=== PATIENT | female | born 2005 | race Caucasian/White ===

== ENCOUNTER 2024-11-11 19:49 | Emergency (ER) | payer OTHER, SELFPAY ==
[2024-11-11 19:50] VITALS: BP 143/99
[2024-11-11 20:06] LABS: % Basophils 0.2 % (0-2); % Eosinophils 0.4 % (0-6); % Immature Granulocytes 0.4 % (0-0.5); % Monocytes 7.3 % (1.7-9.3); % Neutrophils 70.7 % (42.2-75.2); Absolute Monocytes 0.3 10^3/uL (0.1-0.6); Absolute Neutrophils 3.3 10^3/uL (1.4-6.5); Hematocrit 41.1 % (37.0-47.0); Hemoglobin 13.6 g/dL (12.0-16.0); Mean Corp Hgb Conc. 33.1 g/dL (33.0-37.0); Mean Corpuscular Hgb 27.2 pg (27.0-31.0); Mean Corpuscular Volume 82.2 fL (81.0-99.0); Mean Platelet Volume 10.5 fL (7.4-10.4); Nucleated Red Blood Cells % 0 %; Platelet Count 238 10^3/uL (130-400); Red Cell Dist. Width 16.7 % (11.5-14.5); White Blood Cell Count 4.7 10^3/uL (4.8-10.8)
[2024-11-11 20:15] LABS: HCG, Serum Qualitative Screen Negative
[2024-11-11 20:20] LABS: ALT (SGPT) 58 U/L (0-35); AST (SGOT) 60 U/L (14-36); Albumin 4.5 g/dl (3.5-5.0); Alkaline Phosphatase 53 U/L (38-126); Blood Urea Nitrogen 6 mg/dl (7-17); Calcium 9.4 mg/dl (8.4-10.2); Carbon Dioxide 23 mmol/L (22-30); Chloride 107 mmol/L (98-107); Glucose 116 mg/dl (70-99); Potassium 5.4 mmol/L (3.5-5.1); Sodium 138 mmol/L (135-145); Total Bilirubin 0.5 mg/dl (0.2-1.3); Total Protein 7.7 g/dl (6.3-8.2); eGFR > 60.00
[2024-11-11 20:31] LABS: COVID-19 Antigen Negative (Negative)
[2024-11-11 22:25] VITALS: BP 135/89
[2024-11-11] MEDS: MOTRIN 600 MG PO (22:29)
--- NOTE | 2024-11-11 23:16 | ED.GENMED ---
History of Present Illness
<Whitley Diaz PA-C - Last Filed: 11/12/24 05:44>
General
Chief Complaint: Headache
Source: patient
Exam Limitations: none
Time Seen by Provider: 11/11/24 23:16
Nursing documentation reviewed up to this point in time: agreed with
History of Present Illness
History of Present Illness:
19-year-old female with no past medical history presents emergency department today with concerns of frontal headache and neck pain. Patient reports that this has been going on for the past 4 days. Patient reports that initially, Tylenol and Motrin
helped her symptoms but then it started to get to the point where these medications no longer helped. She started notes that 2 days ago, she felt warm and took her temperature and noticed that she had a fever. She saw her primary care provider
today and was told to go to emergency department due to concern for meningitis. Patient reports that she is up-to-date on her vaccinations. She denies any rash. She denies any abdominal pain. She denies any visual changes or visual loss. She
denies any dizziness or lightheadedness. She has never had symptoms like this in the past. She denies any sore throat, cough, upper respiratory symptoms. Denies any burning with urination. Patient also notes generalized bodyaches with this as
well as back pain.
Review of Systems
<Whitley Diaz PA-C - Last Filed: 11/12/24 05:44>
Review of Systems
All Other Systems: ROS reviewed and negative except as documented in HPI and ROS
Phy Exam
<Whitley Diaz PA-C - Last Filed: 11/12/24 05:44>
Physical Exam
Physical Exam:
General: Patient is well appearing and in no acute distress; non-toxic
Skin: Warm and dry, no rashes or lesions
Head: Normocephalic, atraumatic
Eyes: Sclera non-icteric. EOMs intact.
Cardiac: Regular rate and rhythm, no murmurs
Pulm: Normal respiratory effort, no wheezes, rales, or rhonchi
Abdomen: No abdominal tenderness to palpation
Musculoskeletal: No midline cervical spinal tenderness, no midline thoracic tenderness
Neuro: CN II-XII intact, no focal neurologic deficits. No meningismus, mild paracervical tenderness to palpation
Psychiatric: Appropriate mood and affect.
Sepsis
<Whitley Diaz PA-C - Last Filed: 11/12/24 05:44>
Sepsis Screening
Sepsis Assessment: Sepsis Ruled Out
Sepsis Screen
Sepsis Screen: Sepsis Ruled Out
Date: 11/12/24
Time: 05:44
Course
<MAL Jiménez Last Filed: 11/12/24 05:44>
Orders/Labs/Results
Orders:
Orders
11/11/24 19:53
Test Result ONCE
11/11/24 19:59
COVID-19 Antigen Urgent
Source: Nasal Swab
Complete Blood Count/With Diff Urgent
Comprehensive Metabolic Panel Urgent
HCG, Serum Qualitative Screen Urgent
Monotest Urgent
Comment: ADD ON
Influenza A+B Rapid Molecular Urgent
SACHIN Source: Nasal Swab
Specimen Description:
11/11/24 22:28
Ibuprofen [Motrin] 600 mg .ROUTE .STK-MED ONE
11/11/24 22:29
Ibuprofen [Motrin] 600 mg PO NOW STA
11/11/24 23:12
Acetaminophen [Tylenol] 650 mg PO NOW STA
11/11/24 23:18
Urinalysis Reflex To Culture Urgent
Date Specimen was Collected: 11/12/24
Time Specimen was Collected: 00:05
11/11/24 23:29
CT Head W/o Iv Contrast Urgent
Comment:
Reason For Exam: headache, neck pain, fever
11/11/24 23:33
0.9% Sodium Chloride 1000 ml [Nss] 1,000 ml IV BOLUS
11/11/24 23:48
Add On- LAB Urgent
Tests Added?: mono
11/12/24 00:11
Urine Microscopic Reflex Cult Urgent
11/12/24 00:38
Diphenhydramine [Benadryl] 25 mg IV NOW STA
Metoclopramide [Reglan] 10 mg IV NOW STA
CR Chest - 2 Views Urgent
Comment:
Reason For Exam: fever
11/12/24 01:33
Midazolam HCl [Versed] 2 mg IV NOW STA
11/12/24 02:26
CSF Cell Count Urgent
Date Specimen was Collected: 11/12/24
Time Specimen was Collected: 02:24
Spinal Fluid Glucose Urgent
Date Specimen was Collected: 11/12/24
Time Specimen was Collected: 02:24
Spinal Fluid Protein Urgent
Date Specimen was Collected: 11/12/24
Time Specimen was Collected: 02:24
CSF Culture with Gram Stain Urgent
SACHIN Source: Csf
Specimen Description:
Date Specimen was Collected: 11/12/24
Time Specimen was Collected: 02:24
Abnormal Lab Results
11/11/24 11/12/24 11/12/24
19:59 00:11 02:26
WBC 4.7 L 10^3/uL
(4.8-10.8)
RDW 16.7 H %
(11.5-14.5)
MPV 10.5 H fL
(7.4-10.4)
Absolute Lymphs (auto) 1.0 L 10^3/uL
(1.2-3.4)
Potassium 5.4 H mmol/L
(3.5-5.1)
BUN 6 L mg/dl
(7-17)
Glucose 116 H mg/dl
(70-99)
AST 60 H U/L
(14-36)
ALT 58 H U/L
(0-35)
Ur Occult Blood Reflex 1+ A
(Negative)
Urine Bacteria (Reflex) Few A
(Negative)
CSF Glucose 78 H mg/dl
(40-70)
11/11/24 19:59
11/11/24 19:59
Vital Signs
Initial and Last Documented VS:
Initial Vital Signs
Temp Pulse Resp BP Pulse Ox
100.6 F H 101 19 143/99 100
11/11/24 19:50 11/11/24 19:50 11/11/24 19:50 11/11/24 19:50 11/11/24 19:50
Last Documented Vital Signs
Temp Pulse Resp BP Pulse Ox
99.1 F 64 18 128/76 99
11/11/24 23:29 11/12/24 04:02 11/12/24 04:02 11/12/24 04:02 11/12/24 04:02
<Mohan Thornton, DO - Last Filed: 11/12/24 00:39>
Orders/Labs/Results
Orders:
Orders
11/11/24 19:53
Test Result ONCE
11/11/24 19:59
COVID-19 Antigen Urgent
Source: Nasal Swab
Complete Blood Count/With Diff Urgent
Comprehensive Metabolic Panel Urgent
HCG, Serum Qualitative Screen Urgent
Monotest Urgent
Comment: ADD ON
Influenza A+B Rapid Molecular Urgent
SACHIN Source: Nasal Swab
Specimen Description:
11/11/24 22:28
Ibuprofen [Motrin] 600 mg .ROUTE .STK-MED ONE
11/11/24 22:29
Ibuprofen [Motrin] 600 mg PO NOW STA
11/11/24 23:12
Acetaminophen [Tylenol] 650 mg PO NOW STA
11/11/24 23:18
Urinalysis Reflex To Culture Urgent
Date Specimen was Collected: 11/12/24
Time Specimen was Collected: 00:05
11/11/24 23:29
CT Head W/o Iv Contrast Urgent
Comment:
Reason For Exam: headache, neck pain, fever
11/11/24 23:33
0.9% Sodium Chloride 1000 ml [Nss] 1,000 ml IV BOLUS
11/11/24 23:48
Add On- LAB Urgent
Tests Added?: mono
11/12/24 00:11
Urine Microscopic Reflex Cult Urgent
11/12/24 00:38
Diphenhydramine [Benadryl] 25 mg IV NOW STA
Metoclopramide [Reglan] 10 mg IV NOW STA
CR Chest - 2 Views Urgent
Comment:
Reason For Exam: fever
11/12/24 01:33
Midazolam HCl [Versed] 2 mg IV NOW STA
11/12/24 02:26
CSF Cell Count Urgent
Date Specimen was Collected: 11/12/24
Time Specimen was Collected: 02:24
Spinal Fluid Glucose Urgent
Date Specimen was Collected: 11/12/24
Time Specimen was Collected: 02:24
Spinal Fluid Protein Urgent
Date Specimen was Collected: 11/12/24
Time Specimen was Collected: 02:24
CSF Culture with Gram Stain Urgent
SACHIN Source: Csf
Specimen Description:
Date Specimen was Collected: 11/12/24
Time Specimen was Collected: 02:24
Abnormal Lab Results
11/11/24 11/12/24 11/12/24
19:59 00:11 02:26
WBC 4.7 L 10^3/uL
(4.8-10.8)
RDW 16.7 H %
(11.5-14.5)
MPV 10.5 H fL
(7.4-10.4)
Absolute Lymphs (auto) 1.0 L 10^3/uL
(1.2-3.4)
Potassium 5.4 H mmol/L
(3.5-5.1)
BUN 6 L mg/dl
(7-17)
Glucose 116 H mg/dl
(70-99)
AST 60 H U/L
(14-36)
ALT 58 H U/L
(0-35)
Ur Occult Blood Reflex 1+ A
(Negative)
Urine Bacteria (Reflex) Few A
(Negative)
CSF Glucose 78 H mg/dl
(40-70)
11/11/24 19:59
11/11/24 19:59
Vital Signs
Initial and Last Documented VS:
Initial Vital Signs
Temp Pulse Resp BP Pulse Ox
100.6 F H 101 19 143/99 100
11/11/24 19:50 11/11/24 19:50 11/11/24 19:50 11/11/24 19:50 11/11/24 19:50
Last Documented Vital Signs
Temp Pulse Resp BP Pulse Ox
99.1 F 64 18 128/76 99
11/11/24 23:29 11/12/24 04:02 11/12/24 04:02 11/12/24 04:02 11/12/24 04:02
Procedures
<Whitley Diaz PA-C - Last Filed: 11/12/24 05:44>
Lumbar Puncture
Indication for procedure:: headache, fever, neck pain
Procedure completed by: Kylie Martinez MD, Whitley Diaz PA-C
Consent form signed: Yes
Anesthesia/sedation: 1% Lidocaine with Epi
Preparation: cleaned with Betadine
Position: sitting
Needle Size: 20 gauge
Needle Type: Lumbar Needle
Number of attempts: 2
Dressing applied to puncture site: bandaid
Complications: none
<Whitley Diaz PA-C - Last Filed: 11/12/24 05:44>
MDM/Problems Addressed
Differential Diagnosis Includes:
Differentials include viral syndrome, COVID-19, influenza, mononucleosis, viral meningitis, migraine headache, tension headache
MDM/Problems Addressed:
19-year-old female with no past medical history presents emergency department today with concerns of frontal headache and neck pain. Patient reports that this has been going on for the past 4 days. Patient reports that initially, Tylenol and Motrin
helped her symptoms but then it started to get to the point where these medications no longer helped. Upon arrival to emergency department, she is febrile. She is well-appearing on exam. She has no meningismus. Her CBC and CMP is unremarkable
however she does have slight elevation of LFTs. Her monotest was negative. COVID and flu testing negative. Her urinalysis does not show any evidence of infection. Considering no clear etiology to fever and persistent headache despite ibuprofen,
cannot rule out meningitis. Spinal tap was performed which yielded clear fluid, no evidence of white blood cells. Suspect viral syndrome. Patient symptoms significantly improved with Reglan Benadryl. Patient also received IV fluids. Patient
stable for discharge for discharge.
<Whitley Diaz PA-C - Last Filed: 11/12/24 05:44>
*Critical Care Note
Total Time (30-74mins, 75-104mins- exclusive of procedures): Not Applicable
ED Attending Note
<Whitley Diaz PA-C - Last Filed: 11/12/24 05:44>
-
Portions of this chart may have been created with voice recognition software.� Occasional wrong word or��sound alike� substitutions may have occurred due to the inherent limitations of voice recognition software.
<Mohan Thornton DO - Last Filed: 11/12/24 00:39>
ED Attending Note
Patient seen and examined by attending physician: Yes
I performed the substantive portion of visit, reviewed & personally made and approve the management plan that is documented in note by myself or LESLI.: Yes
ED Attending Note:
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
Shared decision making will consider spinal tap, the meantime we will try to get her comfortable check chest x-ray
Discharge Plan
Departure
Patient Disposition: Home (Routine Discharge)
Date of Disposition: 11/12/24
Time of Disposition: 03:40
Patient with high blood pressure during this ER visit?: Yes
Condition: Good
Discharge Problem:
Acute viral syndrome
Instructions: Headache, Adult (DC), Fever in adults - ED discharge instructions, BLOOD PRESSURE
Prescriptions:
New
metoclopramide HCl [Reglan] 10 mg tablet
10 mg PO Q8HPRN PRN (Reason: nausea and vomiting) Qty: 8 0RF
No Action
oxycodone-acetaminophen 5 MG/325 MG tablet
1 tab PO Q4HPRN PRN (Reason: severe pain) Qty: 15 0RF
Referrals:
Christina Arreola MD [Family Provider, Family Practice]
Activity Restrictions/Additional Instructions:
Please continue to alternate ibuprofen and Tylenol for headache. Should you have a break through headache despite these measures, you can take a dose of Benadryl and Reglan.
Please follow-up with your primary care provider.
Please return to emergency department for any concerns.
Interventions
Interventions:
*Risk Screen - Suicide Last Done: 11/11/24 19:50
*General Assessment Last Done: 11/11/24 23:33
*Neglect/Abuse Screening Last Done: 11/11/24 19:50
*ED- Fall Risk Assessment Last Done: 11/11/24 23:33
*ED COVID-19 Vaccine History Last Done: 11/11/24 23:33
*Nursing Disposition Last Done: 11/12/24 04:02
ED- Neurological Assessment Last Done: 11/12/24 00:34
Discharge Date and Time
Discharge Date/Time: 11/12/24 04:04
Print Language: ITALIAN
[2024-11-11 23:29] VITALS: BMI 25.0
[2024-11-11] MEDS: TYLENOL 650 MG PO (23:30)
[2024-11-11 23:32] VITALS: BP 131/77
[2024-11-11] MEDS: NSS 1000 IV (23:39)
[2024-11-12 00:18] LABS: Urine Albumin Negative (Neg - Trace); Urine Bilirubin Negative (Negative); Urine Character Clear (Clear); Urine Color Yellow; Urine Glucose Negative (Negative); Urine Ketone Negative (Negative); Urine Leukocyte Negative (Negative); Urine Nitrite Negative (Negative); Urine Occult Blood 1+ (Negative); Urine Specific Gravity 1.005 (<1.030); Urine Urobilinogen Negative (Neg - 1+)
[2024-11-12 00:39] LABS: Urine Bacteria Few (Negative); Urine Red Blood Cell 0-2 /HPF (0-2); Urine Squamous Cell 0-2 /LPF (Few); Urine White Cell 0-2 /HPF (0-5)
[2024-11-12] MEDS: BENADRYL 25 MG IV (00:42)
[2024-11-12] MEDS: REGLAN 10 MG IV (00:42)
[2024-11-12 00:48] LABS: Monotest Negative (Negative)
[2024-11-12 02:58] LABS: CSF Clarity Clear; CSF Color Colorless; CSF Tube # 4; Red Cell Count/CSF 0 mm^3; White Cell Count/CSF 0 mm^3 (0-5)
[2024-11-12 03:10] LABS: Spinal Fluid Glucose 78 mg/dl (40-70); Spinal Fluid Protein 20 mg/dl (12-60)
[2024-11-12 04:02] VITALS: BP 128/76
== END 2024-11-12 04:04 | disposition home or self-care (01) ==
LOC: EMR 19:49
PROVIDERS: Emergency Medicine; Physician Assistant; EMERGENCY PHYSICIAN Emergency Medicine; FAMILY PHYSICIAN Family Medicine
DX: B34.9 Viral infection, unspecified (principal); R51.9 Headache, unspecified; M54.2 Cervicalgia; Z11.52 Encounter for screening for COVID-19; M54.9 Dorsalgia, unspecified; R03.0 Elevated blood-pressure reading, without diagnosis of hypertension
CPT/HCPCS: 99284; 96374; 96375; 96361; 70450; 71046; 80053; 81003; 81015; 82945; 84157; 84703; 85025; 86308; 86666; 87015; 87070; 87205; 87476; 87502; 87811; 89051

== ENCOUNTER 2024-11-13 19:10 | Inpatient (IN) | payer OTHER, SELFPAY ==
[2024-11-13 13:46] VITALS: BP 139/92
[2024-11-13 16:18] VITALS: BP 145/80
[2024-11-13 17:00] VITALS: BP 141/79
[2024-11-13] MEDS: NSS 1000 IV (17:16)
[2024-11-13] MEDS: REGLAN 10 MG IV (17:17)
[2024-11-13] MEDS: BENADRYL 25 MG IV (17:17)
--- NOTE | 2024-11-13 17:18 | ED.GENMED ---
History of Present Illness
General
Chief Complaint: Headache
Source: patient, records and family
Time Seen by Provider: 11/13/24 16:32
History of Present Illness
History of Present Illness:
19-year-old female with no significant past medical history presents back to the emergency department after being evaluated here 2 days ago for continued headache, fevers, vomiting and generally feeling unwell. Patient reports that all of her
symptoms started late Monday night into Monday morning which started as just a frontal headache and low-grade fevers, went to their primary care provider who wanted the patient to come to the ER to be evaluated further with concern for possible
meningitis. While here patient had extensive lab work, CT imaging and lumbar puncture done which did not reveal any significant acute pathologies and patient was ultimately sent home. She does report that while she was not feeling fully better she
did feel better following her treatment and evaluation but over the last 24 to 36 hours symptoms have seemed to worsen, continued fever with a Tmax of 103 and continued frontal headache. Patient does not have a history of headaches, no family
history of headaches. Patient denies any rashes, abdominal pain, URI-like symptoms. Patient did follow back up with her primary rider who ordered the patient to have a Lyme test as an outpatient as well as an MRI but patient has yet to have this
scheduled. She last took Tylenol at 2:30 in the morning but reports vomiting this up. No known sick contacts, recent travel or recent antibiotics. Social history was otherwise noncontributory.
Past History
Past History
ED Past Medical History: None
ED Past Surgical History: Appendectomy and Other
Social History
Tobacco: Non-smoker
Alcohol: None
Drug: None
Personal: Single
Living: with family
Review of Systems
Review of Systems
All Other Systems: ROS reviewed and negative except as documented in HPI and ROS
Phy Exam
Physical Exam
Physical Exam:
GENERAL: Alert , in no apparent distress but does appear to be feeling unwell
HEAD: NCAT
EYE: pupils equal and reactive, 5mm bilateral, EOMI
NECK: Supple, no significant adenopathy. no meningismus
ENT: o/p clr, mmm.
CARDIAC: Tachycardic rate, normal rhythm
LUNGS: Clear breath sounds bilaterally, no acute respiratory distress, no wheezes/rales/rhonchi
ABDOMEN: Soft, without focal tenderness, no r/g, no cvat
NEUROLOGICAL: Alert and oriented, no focal neuro deficits
SKIN: Warm and dry, skin intact. No rashes
MUSCULOSKELETAL: No edema, well perfused.
PSYCH: Normal and appropriate interaction.
Scores
Heart Failure Risk
Heart Failure Risk Score: Not Applicable
Heart Score for Chest Pain Patients
STEMI patient?: Not applicable
Withdrawal Assessment of Alcohol
Withdrawal Assessment Completed?: Not applicable
Course
Orders/Labs/Results
Orders:
Orders
11/13/24 16:54
Test Result ONCE
11/13/24 17:01
Add On - Microbiology Urgent
Tests Added?: ehrlichiosis
11/13/24 17:04
0.9% Sodium Chloride 1000 ml [Nss] 1,000 ml IV BOLUS
Diphenhydramine [Benadryl] 25 mg IV NOW STA
Metoclopramide [Reglan] 10 mg IV NOW STA
11/13/24 17:08
Add On - Microbiology Urgent
Tests Added?: Lyme PCR through CSF
11/13/24 17:12
Anaplasma phagocytophila IgG/M [S] Urgent
Complete Blood Count/With Diff Urgent
Comprehensive Metabolic Panel Urgent
HCG, Serum Qualitative Screen Urgent
Lactic Acid Q4H
Comment: CANCEL 2nd LACTIC ACID IF 1st LACTIC ACID IS LESS THAN 2
Babesia Smear [Blood Parasites] Urgent
SAHCIN Source: Blood/Venous
Specimen Description:
Blood Culture Q30M
SACHIN Source: Blood/Venous
Specimen Description:
Blood Culture Q30M
SACHIN Source: Blood/Venous
Specimen Description:
11/13/24 18:15
Ketorolac [Toradol] 15 mg IV NOW STA
11/13/24 18:28
Chlamydia/GC by PCR Routine
SACHIN Source: Urine
Specimen Description:
Source:: URINE
11/13/24 18:32
INFECTIOUS DISEASE CONSULT Routine
Consulting Provider: Florencio Herrera
Was physician already notified: Yes
11/13/24 21:00
Lactic Acid Q4H
Comment: CANCEL 2nd LACTIC ACID IF 1st LACTIC ACID IS LESS THAN 2
Abnormal Lab Results
11/13/24
17:12
Hct 36.0 L %
(37.0-47.0)
RDW 16.4 H %
(11.5-14.5)
Absolute Neuts (auto) 6.7 H 10^3/uL
(1.4-6.5)
Absolute Lymphs (auto) 1.0 L 10^3/uL
(1.2-3.4)
Neutrophils % 81.7 H %
(42.2-75.2)
Lymphocytes % 12.4 L %
(20.5-51.1)
BUN 4 L mg/dl
(7-17)
Creatinine 0.5 L mg/dL
(0.6-1.0)
ALT 39 H U/L
(0-35)
11/13/24 17:12
11/13/24 17:12
Vital Signs
Initial and Last Documented VS:
Initial Vital Signs
Temp Pulse Resp BP Pulse Ox
98.4 F 113 18 139/92 97
11/13/24 13:46 11/13/24 13:46 11/13/24 13:46 11/13/24 13:46 11/13/24 13:46
Last Documented Vital Signs
Temp Pulse Resp BP Pulse Ox
98.4 F 91 17 131/78 100
11/13/24 13:46 11/13/24 17:27 11/13/24 17:27 11/13/24 18:00 11/13/24 18:01
MDM/Problems Addressed
Differential Diagnosis Includes:
Tickborne illness such as babesiosis or Lyme, patient had normal hemoglobin and platelet count making malaria or potential mosquito based illness less likely, other viral syndrome, less concern for acute intracranial bleeding
MDM/Problems Addressed:
19-year-old female presenting to the ER for reevaluation after being seen the other day for headache, symptoms worsening, febrile to 103 at home, not able to tolerate p.o. She is tachycardic here however afebrile. I do think given the time of year
as well as her very mild leukopenia Lyme/tickborne illness testing is warranted. I contacted the micro lab and they still have patient's CSF there. Will order Lyme PCR through the CSF. Will order blood cultures, lactic acid, babesiosis/parasite
smear. Reglan Benadryl and fluids ordered. Potential need for admission
*Pulse Oximetry
Patient hypoxic: no
*[employer] Interpretation
Rate: tachycardiac
Rhythm: sinus
*Critical Care Note
Total Time (30-74mins, 75-104mins- exclusive of procedures): Not Applicable
Data Reviewed
Review of Other/Old Records Reveals: Labs and Records
Patient Management
Discussion with other providers: Hospitalist
Escalation/DeEscalation of care consider admission/obs:
Patient with slight improvement of her headache although still present. She has not had any further vomiting in the ER. Given her already extensive workup less than 48 hours ago combined with continued and worsening symptoms we will plan for
admission. Hospitalist team accepts. Will order additional Toradol for continued pain control.
ED Attending Note
-
Portions of this chart may have been created with voice recognition software.� Occasional wrong word or��sound alike� substitutions may have occurred due to the inherent limitations of voice recognition software.
Discharge Plan
Departure
Patient Disposition: Admit
Date of Disposition: 11/13/24
Time of Disposition: 18:15
Presentation/result/management discussed w/ accepting MD/DO: Hospitalist
Discharge Problem:
Acute intractable headache, Fever
Prescriptions:
No Action
metoclopramide HCl [Reglan] 10 mg tablet
10 mg PO Q8HPRN PRN (Reason: nausea and vomiting) Qty: 8 0RF
cetirizine [Zyrtec] 10 mg Tablet
10 mg PO DAILYPRN PRN (Reason: allergies)
norethindrone ac-eth estradiol [June ()] 1.5-30 mg-mcg Tablet
1 tab PO HS
Visbiome 112.5 billion cell Capsule
1 cap PO DAILY
Referrals:
Christina Arreola MD [Family Provider, Family Practice]
Interventions
Interventions:
*Risk Screen - Suicide Last Done: 11/13/24 13:46
*General Assessment Last Done: 11/13/24 17:23
*Neglect/Abuse Screening Last Done: 11/13/24 13:46
*ED- Fall Risk Assessment Last Done: 11/13/24 17:23
*ED COVID-19 Vaccine History Last Done: 11/13/24 17:23
ED- Neurological Assessment Last Done: 11/13/24 16:23
Discharge Date and Time
Print Language: BELIZEAN
[2024-11-13 17:21] LABS: % Basophils 0.4 % (0-2); % Eosinophils 0.1 % (0-6); % Immature Granulocytes 0.2 % (0-0.5); % Lymphocytes 12.4 % (20.5-51.1); % Monocytes 5.2 % (1.7-9.3); % Neutrophils 81.7 % (42.2-75.2); Absolute Monocytes 0.4 10^3/uL (0.1-0.6); Absolute Neutrophils 6.7 10^3/uL (1.4-6.5); Hemoglobin 12.2 g/dL (12.0-16.0); Mean Corp Hgb Conc. 33.9 g/dL (33.0-37.0); Mean Corpuscular Hgb 27.5 pg (27.0-31.0); Mean Corpuscular Volume 81.3 fL (81.0-99.0); Mean Platelet Volume 10.2 fL (7.4-10.4); Nucleated Red Blood Cells % 0 %; Platelet Count 283 10^3/uL (130-400); Red Blood Cell Count 4.43 10^6/uL (4.20-5.40); Red Cell Dist. Width 16.4 % (11.5-14.5); White Blood Cell Count 8.2 10^3/uL (4.8-10.8)
[2024-11-13 17:32] LABS: HCG, Serum Qualitative Screen Negative
[2024-11-13 17:36] LABS: Lactic Acid 0.8 mmol/L (0.7-2.0)
[2024-11-13 17:37] LABS: ALT (SGPT) 39 U/L (0-35); AST (SGOT) 31 U/L (14-36); Alkaline Phosphatase 65 U/L (38-126); Blood Urea Nitrogen 4 mg/dl (7-17); Calcium 9.2 mg/dl (8.4-10.2); Carbon Dioxide 23 mmol/L (22-30); Chloride 107 mmol/L (98-107); Glucose 90 mg/dl (70-99); Potassium 3.8 mmol/L (3.5-5.1); Sodium 139 mmol/L (135-145); Total Bilirubin 0.4 mg/dl (0.2-1.3); eGFR > 60.00
[2024-11-13 18:00] VITALS: BP 131/78
--- NOTE | 2024-11-13 18:23 | HPS.HSE ---
Family Physician
-
Family Physician: Christina Arreola MD
Chief Complaint
-
vomitting
History of Present Illness
19-year-old female with no significant past medical history presents back to the emergency department after being evaluated here 2 days ago for continued headache, fevers, vomiting and generally feeling unwell since Monday night. patient stated
fever 100-103 since Monday night. she was also having Pressure behind her eyes and AREVALO. she started vomiting last night. patient was evaluated in the ER yesterday. While here patient had extensive lab work, CT imaging and lumbar puncture done
which did not reveal any significant acute pathologies and patient was ultimately sent home. she does not have any more fever. but AREVALO persisted. and vomiting started yesterday. denied abdominal pain,diarrhea. denied chest pain, sob. denied runny
nose, congestion, cough. denied dysuria[place] sometimes brings ticks home.
admitting for further management
Medical History
Past Medical History
Past Medical History: Reports None
Past Surgical History: Reports Other
Additional Past Surgical History:
appendectomy
adenoidectomy
Social History
Tobacco: Non-smoker
Alcohol: Occasional
Drug: None
Personal: Single
Living: With Family
Family History
Family History: Not pertinent
Allergies / Home Medications
Allergies reflects when Allergies were last updated in [facility].
Home Medications with original date entered in [facility]
Allergy/Medication List:
Allergies
Allergy/AdvReac Type Severity Reaction Status Date / Time
No Known Allergies Allergy Verified 11/11/24 19:50
Home Medications
metoclopramide HCl 10 mg tablet (Reglan) 10 mg PO Q8HPRN PRN nausea and vomiting #8 tabs 11/12/24
Lactobac no.2-Bifidobac no.1-S. thermo 112.5 billion cell capsule (Visbiome) 1 cap PO DAILY 11/13/24
cetirizine 10 mg tablet (Zyrtec) 10 mg PO DAILYPRN PRN allergies 11/13/24
norethindrone acetate 1.5 mg-ethinyl estradiol 30 mcg tablet (Junel) 1 tab PO HS 11/13/24
Review of Systems
-
Constitutional: Reports Fever
EENT: Reports No Symptoms
Respiratory: Reports No Symptoms
Cardiac: Reports No Symptoms
Abdomen/GI: Reports No Symptoms
: Reports No Symptoms
Musculoskeletal: Reports No Symptoms
Skin: Reports No Symptoms
Neurological: Reports Headache
Endocrine: Reports No Symptoms
Hematologic/Lymphatic: Reports No Symptoms
Psych: Reports No Symptoms
Physical Exam
Vital Signs
Vital Signs
Temp Pulse Resp BP Pulse Ox
98.4 F 91 17 131/78 100
11/13/24 13:46 11/13/24 17:27 11/13/24 17:27 11/13/24 18:00 11/13/24 18:01
Physical Exam
General: Well Developed, Well Nourished and No Apparent Distress
HEENT: NormoCephalic, Moist mucous membranes and Atraumatic
Respiratory: Clear
Cardiac: S1/S2 and Regular Rhythm; No Murmur or Rub
GI: Soft, Non Tender, Non Distended and Normal Bowel Sounds; No Organomegaly
Rectal: Deferred by Provider
Musculoskeletal: No Clubbing, No Cyanosis and No Edema
Skin: No Rash
Neuro: AO x 3 and Nonfocal/grossly intact
Psych: Calm
Laboratory Results
-
11/13/24 17:12
11/13/24 17:12
Laboratory Results
Lactic Acid 0.8 mmol/L (0.7-2.0) 11/13/24 17:12
Total Bilirubin 0.4 mg/dl (0.2-1.3) 11/13/24 17:12
AST 31 U/L (14-36) 11/13/24 17:12
ALT 39 U/L (0-35) H 11/13/24 17:12
Alkaline Phosphatase 65 U/L (38-126) 11/13/24 17:12
Data Reviewed
-
Diagnostic Radiology: Report Reviewed by me
CT Scan: Report Reviewed by me
Lab Data: Labs Reviewed by me
Impression/Plan
-
# Intractable headache/fever/vomiting unclear cause concern for meningitis/lyme disease
- LP and CT negative
-lyme added
-Babesia, blood culture, phagocytophila ordered in ER
-chest x ray from yesterday negative
-head CT negative
-UA negative
-urine chlamydia GC ordered
-Tylenol prn for fever and AREVALO
-iv vanco and ceftriaxone
-consider acyclovir if no improvement
-ID consulted
#DVT prophylaxis
-Lovenox
#CODE status
-full code
[2024-11-13] MEDS: TORADOL 15 MG IV (18:27)
--- NOTE | 2024-11-13 18:52 | W.PN.UPDATE ---
Update Note
Progress Note Update
I have independently examined the patient and agree with H&P written on the same date. In addition:
19yo F came with fevers and headache, had LP on the day prior
-COncern for PIPE MAKER infection
LP culture and lyme pending, add-on Meningitis, encephalitis panel, Ceftriaxone 2g q12h, vanco, ID consult
We have spent at least 75min admitting the patient
[2024-11-13 19:00] VITALS: BP 127/76
[2024-11-13 21:00] VITALS: BP 131/76
[2024-11-13 21:30] VITALS: BMI 25.2
[2024-11-13] MEDS: TYLENOL 650 MG PO (21:31)
[2024-11-13] MEDS: ROCEPHIN 2000 MG IV (21:35)
[2024-11-13] MEDS: STERILE WATER FOR INJECTION 20 ML IV (21:35)
[2024-11-14] MEDS: TYLENOL 650 MG PO ×3 (01:56→10:33)
--- NOTE | 2024-11-14 03:59 | PTCARENOTE ---
Pt arrived to unit via stretcher. Pt walked from stretcher to bed. Pt's family was present at bedside. Pt oriented to room. Pt AAOx3, VSS. Plan of care ongoing, call arreola within reach.
[2024-11-14 06:43] LABS: Hematocrit 34.6 % (37.0-47.0); Hemoglobin 11.7 g/dL (12.0-16.0); Mean Corp Hgb Conc. 33.8 g/dL (33.0-37.0); Mean Corpuscular Volume 79.9 fL (81.0-99.0); Mean Platelet Volume 10.2 fL (7.4-10.4); Platelet Count 287 10^3/uL (130-400); Red Blood Cell Count 4.33 10^6/uL (4.20-5.40); Red Cell Dist. Width 16.7 % (11.5-14.5); White Blood Cell Count 8.7 10^3/uL (4.8-10.8)
[2024-11-14 06:52] LABS: Blood Urea Nitrogen 4 mg/dl (7-17); Calcium 8.7 mg/dl (8.4-10.2); Carbon Dioxide 20 mmol/L (22-30); Chloride 108 mmol/L (98-107); Estimated Creatinine Clearance > 125 ml/min; Glucose 118 mg/dl (70-99); Potassium 3.8 mmol/L (3.5-5.1); Sodium 137 mmol/L (135-145); eGFR > 60.00
[2024-11-14 07:00] VITALS: BP 116/76
[2024-11-14] MEDS: STERILE WATER FOR INJECTION 20 ML IV (08:27)
[2024-11-14] MEDS: VISBIOME 1 CAP PO (08:27)
[2024-11-14] MEDS: ROCEPHIN 2000 MG IV (08:28)
--- NOTE | 2024-11-14 10:36 | CON.ID ---
Consultation
-
Date/Time Consultation Requested: 11/13/24 183
Date/Time Consultation Performed: 11/14/2024 1037
Requesting Provider: Cielo Wren
Performing Provider: Dr. Herrera
Reason for Consultation: Headache
Chief Complaint / Past History
History of Present Illness
Meaghan Vora is a 19-year-old female being evaluated at the request of Cielo Wren in regards to headache and possible meningitis. History is obtained from chart review, along the patient interview. Additional history was obtained from the
patient's mother who was present at the bedside.
The patient has no significant past medical history, and is recently home from [facility] ([facility]) since early October. She was in her usual state of health until 11/08 when she developed a headache in the evening. The next day she
reported some bodyaches along with chills and notes that she had difficulty sleeping. Over the next 2 days days she had ongoing fevers, along with a headache. She notes that she took Tylenol for the headache without significant relief. She
presented to the emergency room on 11/11 for further evaluation. There she was noted to have fever to 103 degrees. Had a lumbar puncture was performed which was found negative, and she was discharged home. 2 days ago she developed significant
nausea and vomiting, and ultimately presented back to the emergency room last evening for further care and workup.
She reports that the headache was initially on her left side but now seems to encompass all of her head. She notes some left eye swelling, but no change in vision. She notes discomfort with eye movements behind the eyes. She notes neck discomfort
with range of motion. She reports some photophobia. She denies any chest pain or shortness of breath. She denies any abdominal pain, just nausea. Since arrival, she has noted some improvement in her nausea, but has also been on Zofran.
She goes to school at [facility] [employer], and is recently home. There has been no recent travel. There is 1 dog at home. Since arriving home she has been spending time at the pool and at the beach. She has very little to no valerio exposure.
She has not seen any ticks on her, but she has noted they have been on her dog. She has no known mosquito bites. No history of rash. No joint swelling or pain.
She is sexually active, and reports negative HIV testing earlier this year.
Past History
Past Medical History: None
Past Surgical History: Appendectomy and Tonsilectomy
Allergy History:
No Known Allergies Allergy (Verified 11/11/24 19:50)
Medications Reviewed: Yes
Current Antibiotics:
Ceftriaxone 2 g IV every 12 hours
Social History
Tobacco: Non-Smoker
Alcohol: Occasional
Drug: None
Personal: Single
Living: With Family
Employment: Other (Student)
Family History
Family History: Not Pertinent
Review of Systems
Vital Signs
Temp Pulse Resp BP Pulse Ox
99.2 F 97 18 116/76 97
11/14/24 07:00 11/14/24 07:00 11/14/24 07:00 11/14/24 07:00 11/14/24 07:00
Physical Exam
Physical Exam
Constitutional: No Acute Distress, Well Developed, Comfortable and Non-toxic
Head: Normocephalic
Eyes: Pupils Equal, Pupils Round, No Conjunctival Hemorrhage, Sclera Anicteric and Other (EOMI / PERRLA); Negative Erythema or Ocular Discharge
Pharynx: Benign
Oral: No Thrush and No Ulcers
Cardiovascular: Regular Rate and S1/S2; Negative S3/S4 or Murmur
Pulmonary: Clear; Negative Wheezes, Rales or Rhonchi
Gastrointestinal: Soft, Non Tender, Non Distended and Normal Bowel Sounds
Extremities: Pulses; Negative Edema, Cyanosis, Erythema, Splinter Hemorrhage, Calf Swelling or Janeway Lesions
Musculoskeletal: Negative Joint Swelling or Joint Effusion
Skin: Warm and Dry; Negative Rash or Jaundice
Neurological: AO x 3; Negative Meningeal Signs (No nuchal rigidity)
Lab / Diagnostic Study Results
11/14/24 05:52
11/14/24 05:52
Abs Immat Gran (auto) 0.0 10^3/uL (0-0.05) 11/13/24 17:12
Absolute Neuts (auto) 6.7 10^3/uL (1.4-6.5) H 11/13/24 17:12
Absolute Lymphs (auto) 1.0 10^3/uL (1.2-3.4) L 11/13/24 17:12
Absolute Monos (auto) 0.4 10^3/uL (0.1-0.6) 11/13/24 17:12
Absolute Basos (auto) 0.0 10^3/uL (0-0.2) 11/13/24 17:12
Immature Gran % 0.2 % (0-0.5) 11/13/24 17:12
Neutrophils % 81.7 % (42.2-75.2) H 11/13/24 17:12
Lymphocytes % 12.4 % (20.5-51.1) L 11/13/24 17:12
Monocytes % 5.2 % (1.7-9.3) 11/13/24 17:12
Eosinophils % 0.1 % (0-6) 11/13/24 17:12
Basophils % 0.4 % (0-2) 11/13/24 17:12
Lactic Acid Cancelled 11/13/24 21:00
Microbiology Results
Micro:
11/13/24 23:29 Chlamydia trachomatis (PCR) - Final
Urine Neisseria gonorrhoeae (PCR) - Final
11/13/24 17:12 Blood Parasites Smear - Final
Blood/Venous
11/13/24 17:12 Blood Culture - Pending
Blood/Venous
11/13/24 17:12 Blood Culture - Pending
Blood/Venous
CSF
11/12/24
02:26
CSF Appearance Clear
CSF Color Colorless
CSF WBC 0
CSF RBC 0
CSF Cell Count Tube # 4
CSF Glucose 78 H
CSF Total Protein 20
Imaging:
11/11/2024 CT head without contrast: There is no midline shift. There is no evidence of acute intracranial hemorrhage. There is no CT evidence for a focal area of infarction. Slight prominence of the extra-axial CSF in the left posterior
paramedian posterior fossa, measuring approximately 1.7 cm transverse by 1.2 cm AP by 2.8 cm craniocaudal. This either represents megacisterna magna or a small arachnoid cyst, for which no further imaging follow-up is needed. Left lateral ventricle
slightly larger than the right, a finding which is occasionally seen and considered normal variant. Aponte and white matter differentiation appears grossly within normal limits for CT. The visualized paranasal sinuses appear clear. The mastoid air
cells appear clear. Overall impression is that of no evidence of acute intracranial abnormality.
Assessment / Plan
Headache
Neck pain
Fever
Nausea/vomiting
Recommendations:
Case discussed with ER last evening.
Testing ordered for tickborne disease including Lyme serology and PCR on prior CSF. Additionally, serology for Anaplasma and Ehrlichia has been sent.
Appearance of CSF does not appear consistent with meningitis.
Current clinical picture may be a viral illness, and will do further testing for West Nile. Additionally will check HIV (patient has given verbal consent) although symptomatology not entirely consistent with acute disease.
Await tickborne illness panel.
Check meningitis PCR panel on previously obtained CSF
Continue with supportive measures including pain medicines for headache, along with antiemetics.
Given recent LP, spinal headache remains on the differential, and if headache persists, would consider Neurology and/or IR evaluation.
Given left periorbital swelling and retro-orbital discomfort, consider MRI.
Will continue to follow, with additional recommendations as data is returned.
--- NOTE | 2024-11-14 14:16 | W.PN.HOSP.TC ---
Addendum entered and electronically signed by Jose Goldsmith MD 11/14/24 20:15:
Attending Addendum-
I saw and evaluated the patient. I reviewed the resident�s note and agree with findings and plan as documented in the resident�s note. Sub: Patient seen with BF and mother and grandmother. Complains if pain behind eyes left eyelid swelling and mild
neck pain. no fevers chills vision changed Full 12 point ROS reviewed and negative except as documented Exam: Vitals reviewed in chart GEN-mild distress heent no meningismus neg nuchal rigidity neg Brudzinski neg Kernig, pupils uneven right 3mm>2MM
left reactive left eyelid mildy swollen heart RRR no MRG abd SOFT nt nd pos BS LE no edema Neruo AAO x 3 MS 5/5 sensation intact
Plan:
# Intractable headache/fever/vomiting unclear cause
-could be spinal AREVALO s/p LP
-LP and CT negative
-lyme added
-Babesia, blood culture, phagocytophila
-chest x ray from yesterday negative
-head CT negative
-UA negative
-urine chlamydia GC ordered-neg
-Tylenol prn for fever and AREVALO
-add toradol prn
-iv vanco and ceftriaxone-abx dc'd per ID
-ID input appreciated
-check MRI w/w/o
# Transaminitis
- trending down
- cont IVF
#DVT prophylaxis
-Lovenox
#CODE status
-full code
Time spent coordinating care, review of plan of care with resident, personally reviewed records in EMR, med rec, consults, notes, labs, radiology, d/w nursing and family � 55 mins
Original Note:
Today's Communication/Plan
-
Continue antibiotics
Assessment / Plan
Assessment / Plan
Assessment
19-year-old female presenting with fevers , pain behind her eyes, headache, nausea and vomiting. She was evaluated in the ER yesterday, CT and lumbar puncture unremarkable..
Plan
#Intractable headache, nausea, vomiting, fevers.
Patient remains afebrile at this visit, normal white count.
Patient reports having fever up to Tmax of 103, persistent headaches, neck pain.
LP and CT negative
CSF analysis�no evidence of meningitis
ID on board
Workup for Lyme, Babesia, Anaplasma, Ehrlichia, phagocytosis�pending
ID plan for�West Nile, HIV testing, tickborne illness panel
meningitis PCR panel�negative
NAAT�G/C�negative
Continue vancomycin and ceftriaxone
Antiemetics and adequate pain control�Tylenol, ketorolac
Left periorbital swelling�MRI with/without contrast
Patient is on Junel�oral contraceptive pills >>might be contributing for headaches.
Will consider neurology consult.
-#DVT prophylaxis�Lovenox
#Full code
Anticipated Discharge: 24 - 48 hours
Subjective/Interval History
-
Date of Service: November 14, 2024
Patient still has headache, nausea. Reports having pain behind her eyes.
Objective Data
-
Labs:
Laboratory Results
11/14/24
05:52
WBC 8.7
Hgb 11.7 L
Hct 34.6 L
Plt Count 287
Sodium 137
Potassium 3.8
Chloride 108 H
Carbon Dioxide 20 L
BUN 4 L
Creatinine 0.4 L
Glucose 118 H
Calcium 8.7
Vital Signs:
Vital Signs
Temp Pulse Resp BP Pulse Ox
99.2 F 97 18 116/76 97
11/14/24 07:00 11/14/24 07:00 11/14/24 07:00 11/14/24 07:00 11/14/24 07:00
Physical Exam
-
General: No Apparent Distress
HEENT: Normocephalic, Atraumatic and Other (Periorbital swelling on the left side, conjunctival erythema.)
Respiratory: Clear to Auscultation
Cardiac: Regular Rhythm and S1/S2
GI: Soft, Nontender, Nondistended and Normal Bowel Sounds
Musculoskeletal: Other (Tenderness in the neck)
Skin: Warm and Dry
Neuro: Awake, Alert, Oriented, AO x 3, Nonfocal/Grossly Intact, Central Nerve's Intact, No Sensory Deficits and Other (Brudzinski's negative)
Psych: Calm
[2024-11-14] MEDS: TORADOL 15 MG IV ×2 (14:45→22:53)
[2024-11-14 15:03] VITALS: BP 124/74
--- NOTE | 2024-11-14 15:20 | CM ---
IA obtained by mom at bedside
MRI
Lives in a 2 story home with parents
PLOF: independent
working, drives, student
Denies DME
Denies VN/Rehab
Denies insecurities
PCP: Lexi Arreola
Pharmacy: [facility]
PLAN: Home, no needs when stable
[2024-11-14] MEDS: LOVENOX SC (17:32)
[2024-11-14 23:00] VITALS: BP 124/77
[2024-11-15 07:00] VITALS: BP 136/80
[2024-11-15 07:26] LABS: Hematocrit 32.5 % (37.0-47.0); Mean Corp Hgb Conc. 33.8 g/dL (33.0-37.0); Mean Corpuscular Hgb 27.1 pg (27.0-31.0); Mean Platelet Volume 10.1 fL (7.4-10.4); Platelet Count 315 10^3/uL (130-400); Red Blood Cell Count 4.06 10^6/uL (4.20-5.40); Red Cell Dist. Width 16.8 % (11.5-14.5); White Blood Cell Count 5.3 10^3/uL (4.8-10.8)
[2024-11-15 08:05] LABS: ALT (SGPT) 35 U/L (0-35); AST (SGOT) 27 U/L (14-36); Albumin 3.5 g/dl (3.5-5.0); Alkaline Phosphatase 55 U/L (38-126); Blood Urea Nitrogen 7 mg/dl (7-17); Calcium 9.2 mg/dl (8.4-10.2); Carbon Dioxide 25 mmol/L (22-30); Chloride 110 mmol/L (98-107); Estimated Creatinine Clearance > 125 ml/min; Glucose 92 mg/dl (70-99); Potassium 4.2 mmol/L (3.5-5.1); Sodium 141 mmol/L (135-145); Total Bilirubin 0.2 mg/dl (0.2-1.3); Total Protein 6.3 g/dl (6.3-8.2); eGFR > 60.00
[2024-11-15 08:33] LABS: % Basophils 0.4 % (0-2); % Eosinophils 1.5 % (0-6); % Immature Granulocytes 0.6 % (0-0.5); % Lymphocytes 47.5 % (20.5-51.1); % Monocytes 6.6 % (1.7-9.3); % Neutrophils 43.4 % (42.2-75.2); Absolute Eosinophils 0.1 10^3/uL (0-0.7); Absolute Lymphocytes 2.5 10^3/uL (1.2-3.4); Absolute Monocytes 0.4 10^3/uL (0.1-0.6); Absolute Neutrophils 2.3 10^3/uL (1.4-6.5); Nucleated Red Blood Cells % 0 %
[2024-11-15] MEDS: VISBIOME 1 CAP PO (08:33)
[2024-11-15] MEDS: TORADOL 15 MG IV ×2 (08:33→16:33)
--- NOTE | 2024-11-15 08:55 | W.PN.HOSP.TC ---
Addendum entered and electronically signed by Jose Goldsmith MD 11/15/24 22:00:
Attending Addendum-
I saw and evaluated the patient. I reviewed the resident�s note and agree with findings and plan as documented in the resident�s note. Sub: Patient seen with mother. feels greatly improved no AREVALO. Per mother had abnormal eye movements last pm.
Patients denies vision changes. Neck pain mild. No pain behind eyes. Has been afebrile Full 12 point ROS reviewed and negative except as documented Exam: Vitals reviewed in chart GEN-NAD heent no meningismus neg nuchal rigidity neg Brudzinski neg
Kernig, pupils now even and reactive left eyelid swelling resolved heart RRR no MRG abd SOFT nt nd pos BS LE no edema Neuro AAO x 3 MS 5/5 sensation intact
Plan:
# Intractable headache/fever/vomiting
-could be spinal AREVALO s/p LP vs left occipatl neuralgia
-seen by neuro OMT was done and patient improved
-LP and CT negative
-meningitis panel neg
-head CT negative
-UA negative
-urine chlamydia GC-neg
-toradol helped immensely
-vanco and ceftriaxone-dc'd per ID
-ID input appreciated
-MRI w/w/o 11/15 - Negative MR evaluation of the brain. Paranasal sinus disease
-labs pend will f/u with patient post DC
# Anisocoria
- now resolved
- ORDERED MRV stat but discussed with rads and views with contrast were appropriate with MRI w/wo -no venous thrombosis was visualized no need to obtain MRV
- neg for CVT
- likely physiologic per neuro
# POS HIV screening
- sent for confirmation
- d/w ID at great length re patient being low risk and could possibly be false pos
- Dr. Batista agreed to follow up with patient once confirmatory test received
- DID NOT DISCUSS with patient or mother- healthcare provider decision made to wait until confirmatory test resulted
# Transaminitis
- resolved
#DVT prophylaxis
-Lovenox
#CODE status
-full code
Dispo- Patient initially wanted to stay overnight but decided after OMT by neuro that she would like to go home. Will respect patient wishes as medically stable for DC. advised to follow up regarding pending lab results. Patient and mother agreed.
Time spent coordinating care, DC planning, review of DC plan of care with resident, transition of care, review of records, med rec/scripts sent electronically, consults, notes, d/w rads, ID and Neuro, nursing, family, and CM� 36 mins
Original Note:
Today's Communication/Plan
-
.
Assessment / Plan
Assessment / Plan
Assessment
19-year-old female presenting with fevers , pain behind her eyes, headache, nausea and vomiting. She was evaluated in the ER yesterday, CT and lumbar puncture unremarkable..
Plan
#Intractable headache, nausea, vomiting, fevers.
Patient remains afebrile at this visit, normal white count.
Patient reports having fever up to Tmax of 103, persistent headaches, neck pain.
LP and CT negative
CSF analysis�no evidence of meningitis
ID on board
Workup for Lyme, Babesia, Anaplasma, Ehrlichia, phagocytosis�pending
ID plan for�West Nile, HIV testing, tickborne illness panel
meningitis PCR panel�negative
NAAT�G/C�negative
Discontinue vancomycin and ceftriaxone
Antiemetics and adequate pain control�Tylenol, ketorolac
Left periorbital swelling�MRI with/without contrast
Patient is on Junel�oral contraceptive pills >>might be contributing for headaches.
Neurology consulted
-#DVT prophylaxis�Lovenox
#Full code
Anticipated Discharge: Within 24 hours
Subjective/Interval History
-
Date of Service: November 15, 2024
Patient reports her headaches have improved. She has some tearing from the eyes.
Objective Data
-
Labs:
Laboratory Results
11/15/24
06:45
WBC 5.3
Hgb 11.0 L
Hct 32.5 L
Plt Count 315
Sodium 141
Potassium 4.2
Chloride 110 H
Carbon Dioxide 25
BUN 7
Creatinine 0.5 L
Glucose 92
Calcium 9.2
Total Bilirubin 0.2
AST 27
ALT 35
Alkaline Phosphatase 55
Vital Signs:
Vital Signs
Temp Pulse Resp BP Pulse Ox
98.5 F 66 18 136/80 98
11/15/24 07:00 11/15/24 07:00 11/15/24 07:00 11/15/24 07:00 11/15/24 07:00
I&O
11/14/24 11/15/24 11/16/24
06:59 06:59 06:59
Intake Total 1000 / 1000
Balance 1000 / 1000
Physical Exam
-
General: Well Developed and Well Nourished
HEENT: Normocephalic and Atraumatic
Respiratory: Clear to Auscultation
Cardiac: Regular Rhythm and S1/S2
GI: Soft, Nontender, Nondistended and Normal Bowel Sounds
Skin: Warm and Dry
Neuro: Awake, Alert, Oriented and AO x 3
Psych: Calm
--- NOTE | 2024-11-15 10:12 | W.PN.ID1 ---
Date of Service
Date of Service: November 15, 2024
Today's Communication
Observe off antibiotics.
Assessment / Plan
Headache
- improved
Neck pain
- improved
Fever
Nausea/vomiting
Recommendations:
Patient clinically improved today.
Meningitis panel negative. GC and Chlamydia negative. Blood cultures no growth. Blood parasite smear negative. CSF culture negative.
Testing ordered for tickborne disease including Lyme serology and PCR on prior CSF. Additionally, serology for Anaplasma and Ehrlichia has been sent.
Appearance of CSF does not appear consistent with meningitis.
Continue to observe off antibiotics.
Continue with supportive measures including pain medicines for headache, along with antiemetics.
Will follow pending labs.
����������������������������������������������������������
Chief Complaint
-: Other (AREVALO)
Subjective / Review of Systems
Patient seen and examined. Reports feeling improved today. Headache discomfort is controlled; patient is on Toradol. No further fevers. Neck discomfort with ROM has improved.
Vital Signs / Physical Exam
Vital Signs
Vital Signs
Temp Pulse Resp BP Pulse Ox
98.5 F 66 18 136/80 98
11/15/24 07:00 11/15/24 07:00 11/15/24 07:00 11/15/24 07:00 11/15/24 07:00
Physical Exam
Constitutional: No Acute Distress, Well Developed, Comfortable and Non-toxic
Head: Normocephalic
Eyes: Sclera Anicteric and Other (EOMI)
Cardiovascular: S1/S2; Negative S3/S4 or Murmur
Pulmonary: Clear and Non Labored
Gastrointestinal: Soft and Non Distended
Skin: Negative Rash or Jaundice
Neurological: Awake, Alert and Oriented
Psychological: Calm
Objective Data
Lab Data
Lab Results
11/15/24 06:45
11/15/24 06:45
Estimated Creat Clear > 125 ml/min 11/15/24 06:45
Lactic Acid Cancelled 11/13/24 21:00
Total Bilirubin 0.2 mg/dl (0.2-1.3) 11/15/24 06:45
AST 27 U/L (14-36) 11/15/24 06:45
ALT 35 U/L (0-35) 11/15/24 06:45
Alkaline Phosphatase 55 U/L (38-126) 11/15/24 06:45
Most recent labs reviewed.
Micro Results:
11/13/24 17:12 Blood Culture - Preliminary
Blood/Venous No Growth in 24 hours- Final report to follow
11/13/24 17:12 Blood Culture - Preliminary
Blood/Venous No Growth in 24 hours- Final report to follow
11/13/24 23:29 Chlamydia trachomatis (PCR) - Final
Urine Neisseria gonorrhoeae (PCR) - Final
11/13/24 17:12 Blood Parasites Smear - Final
Blood/Venous
CSF
11/12/24
02:26
CSF Appearance Clear
CSF Color Colorless
CSF WBC 0
CSF RBC 0
CSF Cell Count Tube # 4
CSF Glucose 78 H
CSF Total Protein 20
Imaging:
11/14/2024 MRI brain (w & w/o): There is no evidence of intracranial mass lesion or mass effect with no midline shift. No focal area of abnormal restricted diffusion is identified, with no evidence for a focal area of infarction. On T2 gradient echo
sequence, there is no evidence for old microhemorrhage and no evidence for vascular malformation. There is no evidence for acute intracranial hemorrhage. The ventricles and subarachnoid cisterns appear within normal limits. No abnormal extra-axial
collection is identified. Aponte and white matter differentiation appears normal. The enhancement pattern of the brain appears normal. The dural venous sinuses appear patent. Craniocervical junction appears normal with no evidence for Chiari
malformation. The pituitary gland appears grossly within normal limits. Mild to moderate patchy mucosal thickening of the ethmoid sinuses. Ovoid nonenhancing mucous retention cysts within the inferior aspect of the left maxillary sinus. The right
maxillary and right sphenoid sinuses appear clear.
11/11/2024 CT head without contrast: There is no midline shift. There is no evidence of acute intracranial hemorrhage. There is no CT evidence for a focal area of infarction. Slight prominence of the extra-axial CSF in the left posterior
paramedian posterior fossa, measuring approximately 1.7 cm transverse by 1.2 cm AP by 2.8 cm craniocaudal. This either represents megacisterna magna or a small arachnoid cyst, for which no further imaging follow-up is needed. Left lateral ventricle
slightly larger than the right, a finding which is occasionally seen and considered normal variant. Aponte and white matter differentiation appears grossly within normal limits for CT. The visualized paranasal sinuses appear clear. The mastoid air
cells appear clear. Overall impression is that of no evidence of acute intracranial abnormality.
Care Review
Plan reviewed with: Physician (Resident)
--- NOTE | 2024-11-15 12:14 | PTCARENOTE ---
Patient ambulating to bathroom with a steady gait. Patient has no c/o nausea and tolerated regular diet. Patient c/o 5/10 headache relieved with Toradol. Parent at bedside.
[2024-11-15 15:00] VITALS: BP 134/80
--- NOTE | 2024-11-15 15:13 | CM ---
CM following for discharge plans. Pt with labwork pending; still with headache and fever.
Plan: CM will continue to coordinate discharge plans as needed.
[2024-11-15] MEDS: TYLENOL 650 MG PO (15:30)
[2024-11-15] MEDS: LOVENOX 40 MG SC (17:40)
[2024-11-15 18:51] LABS: HIV Combo Reactive (Negative)
--- NOTE | 2024-11-15 19:07 | CON.NEURO ---
Neuro Assessment/Plan
Assessment
Brain MRI imgs rev'd normal
CSF WBC 0, RBC 0, glucose 78, protein 20
headache description of left occipital neuralgia, which frequently also presents with retro orbital pain. Exam with atlanto axial and cervical subluxation consistent with this. sounds like she developed a spinal leak headache post LP given
holocephalic and worse with sitting up. I performed OMT atlanto axial and cervical mobilization and afterwards her headache got better. for the most part post LP headaches are managed with medication and the leak closes on its own, blood patch can
be considered electively but I don't think it's necessary. after the OMT patient reports feeling well, wanting to go home, but I think she should be monitored overnight off meds to see if fever recurs.
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
I believe these symptoms were a red chong and not related to her fever
Consultation
Order
Date of Consultation: 11/15/24
Requesting Provider: Boni Herring
Reason for Consult: headache, anisocoria
Subjective/Objective
Subjective Data
Date of Service: November 15, 2024
from h&p:
19-year-old female with no significant past medical history presents back to the emergency department after being evaluated here 2 days ago for continued headache, fevers, vomiting and generally feeling unwell since Monday night. patient stated
fever 100-103 since Monday night. she was also having Pressure behind her eyes and AREVALO. she started vomiting last night. patient was evaluated in the ER yesterday. While here patient had extensive lab work, CT imaging and lumbar puncture done
which did not reveal any significant acute pathologies and patient was ultimately sent home. she does not have any more fever. but AREVALO persisted. and vomiting started yesterday. denied abdominal pain,diarrhea. denied chest pain, sob. denied runny
nose, congestion, cough. denied dysuria. [place] dog sometimes brings ticks home.
She reports headache initially began left skull base and radiating up the scalp/presybeterian with left retro orbital pain. not throbbing. Had an LP and afterwards the headache became holocephalic, worse and throbbing with sitting up and better with laying
down, and she developed nausea/vomiting. it was severe but presently reasonably controlled with meds Mom noted some trouble tracking moving objects. No cognitive complaints, weakness, numbness, seizures, psychosis.
Extensive workup by medical team and ID including MRI brain and LP were unremarkable
Objective Data
Vital Signs
Temp Pulse Resp BP Pulse Ox
36.9 C 57 17 134/80 98
11/15/24 15:00 11/15/24 15:00 11/15/24 15:00 11/15/24 15:00 11/15/24 15:00
Lab Results
11/15/24 06:45
11/15/24 06:45
Sodium 141 mmol/L (135-145) 11/15/24 06:45
Potassium 4.2 mmol/L (3.5-5.1) 11/15/24 06:45
BUN 7 mg/dl (7-17) 11/15/24 06:45
Glucose 92 mg/dl (70-99) 11/15/24 06:45
Calcium 9.2 mg/dl (8.4-10.2) 11/15/24 06:45
Patient Allergies
No Known Allergies Allergy (Verified 11/11/24 19:50)
Physical Exam
-
AAOx3, speech clear, language intact,
physiologic anisocoria 5mm OS, 4 mm OD, reactive
EOMI, face symmetric,
full strength b/l UE/LE
sensation intact pin/temp/vib
tender L occipital nerve, left mastoid, with palpated atlantoaxial subluxation and left C3 subluxation
Medications
-
Active Medications
Generic Name Dose Route Start Last Admin
Trade Name Freq PRN Reason Stop Dose Admin
Acetaminophen 650 mg 11/13/24 20:41 11/15/24 15:30
Acetaminophen 325 Mg Tablet PO 12/11/24 20:40 650 mg
Q4HPRN PRN Administration
mild pain/AREVALO/temp> 100.4F
Bisacodyl 10 mg 11/13/24 20:41
Bisacodyl 10 Mg Rectal Suppository RECTAL 12/11/24 20:40
[id number] PRN
constipation
Diphenhydramine HCl 25 mg 11/15/24 18:33
Diphenhydramine 50 Mg/Ml 1 Ml Vial IV 12/13/24 18:32
Q6HPRN PRN
headache
Enoxaparin Sodium 40 mg 11/14/24 18:00 11/15/24 17:40
Enoxaparin Sodium 40 Mg/0.4 Ml Syringe SC 12/12/24 17:59 40 mg
QPM TONY Administration
Ketorolac Tromethamine 15 mg 11/16/24 00:00
Ketorolac 15 Mg/Ml Injection IV 11/21/24 00:00
Q6 TONY
Lactobacillus/Bifidobacterium 1 cap 11/14/24 08:00 11/15/24 08:33
Lactobac/Bifidobac (Visbiome) PO 12/12/24 07:59 1 cap
DAILY TONY Administration
Metoclopramide HCl 10 mg 11/15/24 18:33
Metoclopramide 10 Mg/2 Ml Vial IV 12/13/24 18:32
Q6HPRN PRN
headache
Norethindrone Ac-Eth 1 tablet 11/13/24 22:00
Estradiol [Junel 1. PO 12/11/24 21:59
30 (21)] 1.5-30 Mg HS TONY
-Mcg - 1 Tablet Po
Hs
Polyethylene Glycol 17 grams 11/13/24 20:41
Polyethylene Glycol Powder 17 Grams Packet PO 12/11/24 20:40
DAILYPRN PRN
constipation
Senna/Docusate Sodium 1 tablet 11/13/24 20:41
Docusate W/Senna (Cintia-Colace) Tablet PO 12/11/24 20:40
BIDPRN PRN
constipation
Sodium Chloride 0 flush 11/13/24 22:00
Sodium Chloride 0.9% (Flush) Syringe IV 12/11/24 21:59
PER PROTOCOL TONY
Home Medications
�Medication �Instructions �Recorded
metoclopramide HCl 10 mg tablet 10 mg PO Q8HPRN PRN nausea and 11/12/24
(Reglan) vomiting #8 tabs
Lactobac no.2-Bifidobac no.1-S. 1 cap PO DAILY probiotic 11/13/24
thermo 112.5 billion cell capsule
(Visbiome)
cetirizine 10 mg tablet (Zyrtec) 10 mg PO DAILYPRN PRN allergies 11/13/24
norethindrone acetate 1.5 1 tab PO HS Hormonal Agent 11/13/24
mg-ethinyl estradiol 30 mcg tablet
(Junel)
--- NOTE | 2024-11-15 19:40 | PTCARENOTE ---
Assumed care of patient from previous RN. Patient alert and oriented, no complaints at this time, denies headache. Dr. [place] with neurology just in to see patient for consult, able to manipulate neck area with relief of headache pain instantly. Patient
states she has not had the pain return at this time. TT out to resident caring for patient Dr. Herring, awaiting response at this time regarding possible discharge for tonight. Will monitor.
[2024-11-15 21:10] VITALS: BP 141/80
--- NOTE | 2024-11-15 21:25 | PTCARENOTE ---
Able to obtain discharge instructions for patient, resident called mother at bedside to review instructions and to answer any remaining questions. Patient is eager to go home. IV removed per VAT RN. Discharge instructions reviewed, prescriptions
reviewed, patient verbalizes understanding. All questions answered. Mom and boyfriend at bedside to transport patient home.
--- NOTE | 2024-11-16 13:55 | W.DCSUMMARY ---
Addendum entered and electronically signed by Jose Goldsmith MD 11/17/24 15:56:
Read, reviewed, and agree. See same day progress note for additional details.
Leon Goldsmith MD
Original Note:
Documented by User: Boni Herring MD, Resident 11/16/24 14:41
Discharge Summary
Discharge Data
Date of Admission: 11/13/24
Date of Discharge: 11/16/24
-
Pending Results: Yes
Hospital Course
Discharging Physician : Dr. Goldsmith, Dr. Plata.
Disposition : Home
Principal Discharge diagnosis : Intractable headache
Hospital Course : 19-year-old female presented to the ER reporting headache, and nausea, neck pain, left eye swelling. She was in the emergency room on 11/11, noted to have Tmax�103. Lumbar puncture was negative and was discharged home. Later she
developed nausea vomiting and is back to the ER for further care. Patient reports being on OCPs. Vitals stable, afebrile, labs unremarkable. U/a�no evidence of UTI. ID was consulted. Patient was started on vancomycin and ceftriaxone.Meningitis
panel negative. GC and Chlamydia negative. Blood cultures no growth. Blood parasite smear negative. CSF culture negative. tickborne disease including Lyme serology and PCR , Anaplasma and Ehrlichia-pending. Appearance of CSF does not appear
consistent with meningitis, antibiotics discontinued. Conservative measures with pain medications for headache, antiemetics. Anisocoria and saccadic eye movements(noticed by mom),MRI w/wo contrast-no venous thrombosis was visualized no indication
for MRV. Neurology was consulted-after osteopathic manipulative treatment, patient reported her headaches got better. Patient was hemodynamically stable and has clinically improved. Stable to be discharged home. Her HIV screening test was
positive, did not discuss with patient/mother. ID would follow-up with the patient once the confirmatory test result was received.
Important imaging findings :
Head CT�11/11/2024�no evidence of acute intracranial abnormality
Chest x-ray�11/12/2024�no evidence of active cardiopulmonary disease.
MRI brain�11/14/2024�negative MR evaluation of the brain,Mild to moderate patchy mucosal thickening of the ethmoid sinuses.ovoid nonenhancing mucous retention cysts within the inferior aspect of the left maxillary sinus. The right maxillary and right
sphenoid sinuses appear clear.
Discharge Plan
-
Patient Disposition: Home (Routine Discharge)
Discharge Diagnosis/Procedures: Intractable headaches
Diet: No restrictions
Activity: No restrictions
Driving Restrictions: As prior to admission
Bathing Restrictions: None
Blood Work: Pending blood work to be followed up by infectious disease�Dr. Sharon-Lyme serology, Anaplasma, Ehrlichia.
Referrals:
Florencio Herrera, DO [Active, Infectious Diseases] - in less than 1 week
Christina Arreola MD [Family Provider, [facility]] - in less than 1 week
Prescriptions:
New
ketorolac 10 mg tablet
10 mg PO Q8H PRN (Reason: Pain) 5 Days Qty: 15 0RF
Continued
metoclopramide HCl [Reglan] 10 mg tablet
10 mg PO Q8HPRN PRN (Reason: nausea and vomiting) Qty: 8 0RF
cetirizine [Zyrtec] 10 mg Tablet
10 mg PO DAILYPRN PRN (Reason: allergies)
norethindrone ac-eth estradiol [June ()] 1.5-30 mg-mcg Tablet
1 tab PO HS
Visbiome 112.5 billion cell Capsule
1 cap PO DAILY
Discharge Orders:
Discharge Patient (As Directed); Ordered 11/15/24
Ordered By: Boni Herring
Discharge Date and Time
Discharge Date/Time: 11/15/24 21:23
Print Language: GREEK

Documented by User: Jose Goldsmith MD 11/17/24 15:55
Discharge Summary
Discharge Data
Date of Admission: 11/13/24
Date of Discharge: 11/17/24
Discharge Plan
-
Patient Disposition: Home (Routine Discharge)
Discharge Diagnosis/Procedures: Intractable headaches
Diet: No restrictions
Activity: No restrictions
Driving Restrictions: As prior to admission
Bathing Restrictions: None
Blood Work: Pending blood work to be followed up by infectious disease�DrHima Herrera-Lyme serology, Anaplasma, Ehrlichia.
Referrals:
Florencio Herrera, [Active, Infectious Diseases] - in less than 1 week
Christina Arreola MD [Family Provider, Family Practice] - in less than 1 week
Prescriptions:
New
ketorolac 10 mg tablet
10 mg PO Q8H PRN (Reason: Pain) 5 Days Qty: 15 0RF
Continued
metoclopramide HCl [Reglan] 10 mg tablet
10 mg PO Q8HPRN PRN (Reason: nausea and vomiting) Qty: 8 0RF
cetirizine [Zyrtec] 10 mg Tablet
10 mg PO DAILYPRN PRN (Reason: allergies)
norethindrone ac-eth estradiol [ ()] 1.5-30 mg-mcg Tablet
1 tab PO HS
Visbiome 112.5 billion cell Capsule
1 cap PO DAILY
Discharge Orders:
Discharge Patient (As Directed); Ordered 11/15/24
Ordered By: Boni Herring
Discharge Date and Time
Discharge Date/Time: 11/15/24 21:23
Print Language: GREEK
[2024-11-18 07:57] LABS: Anaplasma phagocytophilum IgG <1:80 (<1:80); Anaplasma phagocytophilum IgM < 1:16 (< 1:16)
--- NOTE | 2024-11-18 11:22 | CM ---
discharge dispo entered
[2024-11-18 17:19] LABS: HIV Serologic Interpretation HIV Abs Neg; HIV-1 Antibody Negative (Negative); HIV-2 Antibody Negative (Negative)
== END 2024-11-15 21:23 | disposition home or self-care (01) | DRG 864 ==
LOC: 3 WEST ACU 19:10
PROVIDERS: Physician Assistant Medical; Registered Nurse; Student in an Organized Health Care Education/Training Program; ADMITTING PHYSICIAN Internal Medicine; ATTENDING PHYSICIAN Family Medicine; CONSULT PHYSICIAN Internal Medicine Infectious Disease; CONSULT PHYSICIAN Psychiatry & Neurology Clinical Neurophysiology; EMERGENCY PHYSICIAN Emergency Medicine; FAMILY PHYSICIAN Family Medicine
DX: R50.9 Fever, unspecified (principal); R51.9 Headache, unspecified; H57.02 Anisocoria
CPT/HCPCS: 70553; 80048; 80053; 83605; 84703; 85025; 85027; 86666; 86701; 86702; 86788; 87015; 87040; 87207; 87389; 87491; 87591; 96361; 96374; 96375; 99285; A9575